=== PATIENT | female | born 1960 | race Caucasian/White ===

== ENCOUNTER 2018-09-01 09:49 | Emergency (ER) | payer BC ==
[2018-09-01] MEDS ORDERED: Albuterol/Ipratropium 3.0-0.5 MG/3 ML Neb Soln NEB ONE (10:12)
--- NOTE | 2018-09-01 10:13 | EDM.PDOC ---
ED HPI GENERAL MEDICAL PROBLEM - General Chief Complaint: Respiratory Problem Stated Complaint: TROUBLE BREATHING Time Seen by Provider: 09/01/18 10:12 Source of Information: Reports: Patient - History of Present Illness INITIAL COMMENTS - FREE TEXT/NARRATIVE: HISTORY AND PHYSICAL: History of present illness: []Patient has persistent cough and week she describes what she calls a rattle in her chest that she can feel this cleared with a DuoNeb however on chest x- ray there is a slight infiltrate on the right will follow radiology interpretation no fever nausea vomiting chills sweats no apparent distress Review of systems: As per history of present illness and below otherwise all systems reviewed and negative. Past medical history: As per history of present illness and as reviewed below otherwise noncontributory. Surgical history: As per history of present illness and as reviewed below otherwise noncontributory. Social history: No reported history of drug or alcohol abuse. Family history: As per history of present illness and as reviewed below otherwise noncontributory. Physical exam: HEENT: Atraumatic, normocephalic, pupils reactive, negative for conjunctival pallor or scleral icterus, mucous membranes moist, throat clear, neck supple, nontender, trachea midline. Lungs: Clear to auscultation, breath sounds equal bilaterally, chest nontender. Post DuoNeb Heart: S1S2, regular, negative for clicks, rubs, or JVD. Abdomen: Soft, nondistended, nontender. Negative for masses or hepatosplenomegaly. Negative for costovertebral tenderness. Pelvis: Stable nontender. Genitourinary: Deferred. Rectal: Deferred. Extremities: Atraumatic, negative for cords or calf pain. Neurovascular unremarkable. Neuro: Awake, alert, oriented. Cranial nerves II through XII unremarkable. Cerebellum unremarkable. Motor and sensory unremarkable throughout. Exam nonfocal. Diagnostics: [Influenza Chest 1 view ] Therapeutics: [DuoNeb ] HFA Z-Derrick Impression: [] light infiltrate on chest x-ray acute bronchitis Definitive disposition and diagnosis as appropriate pending reevaluation and review of above. lungs/chest Pain Score (Numeric/FACES): 4 - Related Data Allergies Allergy/AdvReac Type Severity Reaction Status Date / Time No Known Allergies Allergy Verified 09/01/18 10:14 Home Meds: Home Meds Insulin Glarg,Human.Rec.Analog [Lantus] 50 units SQ BEDTIME 09/01/18 [History] Liraglutide [Saxenda] 30 mg SQ DAILY 09/01/18 [History] Lisinopril 09/01/18 [History] Milnacipran HCl [Savella] 50 mg PO BID 09/01/18 [History] Rosuvastatin [Crestor] 09/01/18 [History] buPROPion [Wellbutrin] PO DAILY 09/01/18 [History] metFORMIN [Glucophage XR] 500 mg PO BID 09/01/18 [History] ED ROS GENERAL - Review of Systems Review Of Systems: See Below ED EXAM, GENERAL - Physical Exam Exam: See Below Course - Vital Signs Last Recorded V/S: Last Vital Signs Temp 96.6 F 09/01/18 10:12 Pulse 93 09/01/18 10:12 Resp 18 09/01/18 10:12 BP 137/85 09/01/18 10:12 Pulse Ox 95 09/01/18 10:12 - Orders/Labs/Meds Orders: Active Orders 24 hr Category Date Time Status RT Aerosol Therapy [RC] ASDIRECTED Care 09/01/18 10:12 Active Chest 2V [CR] Stat Exams 09/01/18 10:51 Taken Meds: Medications Discontinued Medications Generic Name Dose Route Start Last Admin Trade Name Freq PRN Reason Stop Dose Admin Albuterol/Ipratropium 3 ml 09/01/18 10:12 09/01/18 10:26 Duoneb 3.0-0.5 Mg/3 Ml NEB 09/01/18 10:13 3 ml ONETIME ONE Administration Departure - Departure Time of Disposition: 11:27 Disposition: Home, Self-Care 01 Condition: Good Clinical Impression: Pulmonary infiltrate on chest x-ray, Acute bronchitis - Discharge Information Referrals: Leila Wesley DO [Primary Care Provider] - Forms: ED Department Discharge Additional Instructions: The following information is given to patients seen in the emergency department who are being discharged to home. This information is to outline your options for follow-up care. We provide all patients seen in our emergency department with a follow-up referral. The need for follow-up, as well as the timing and circumstances, are variable depending upon the specifics of your emergency department visit. If you don't have a primary care physician on staff, we will provide you with a referral. We always advise you to contact your personal physician following an emergency department visit to inform them of the circumstance of the visit and for follow-up with them and/or the need for any referrals to a consulting specialist. The emergency department will also refer you to a specialist when appropriate. This referral assures that you have the opportunity for follow-up care with a specialist. All of these measure are taken in an effort to provide you with optimal care, which includes your follow-up. Under all circumstances we always encourage you to contact your private physician who remains a resource for coordinating your care. When calling for follow-up care, please make the office aware that this follow-up is from your recent emergency room visit. If for any reason you are refused follow-up, please contact the [facility] emergency department at and asked to speak to the emergency department charge nurse. - My Orders Last 24 Hours: My Active Orders 09/01/18 10:12 RT Aerosol Therapy [RC] ASDIRECTED 09/01/18 10:51 Chest 2V [CR] Stat - Assessment/Plan Last 24 Hours: My Active Orders 09/01/18 10:12 RT Aerosol Therapy [RC] ASDIRECTED 09/01/18 10:51 Chest 2V [CR] Stat
--- NOTE | 2018-09-01 11:57 | CR ---
EXAMINATION: Two-view chest (PA and Lateral views). HISTORY: Shortness of breath. FINDINGS: The trachea is midline. The cardiomediastinal silhouette is within normal limits. There is a trace right suprahilar infiltrate. No pleural effusion or pneumothorax. Right shoulder hardware is noted. IMPRESSION: 1. Trace right suprahilar infiltrate. Likely developing pneumonia.
== END 2018-09-01 11:36 | disposition home or self-care (01) ==
LOC: MW.ED 09:49
DX: J20.9 Acute bronchitis, unspecified (principal); R91.8 Other nonspecific abnormal finding of lung field; I10 Essential (primary) hypertension; E11.9 Type 2 diabetes mellitus without complications; Z90.49 Acquired absence of other specified parts of digestive tract; Z79.4 Long term (current) use of insulin; Z79.899 Other long term (current) drug therapy
CPT/HCPCS: 71046; 71046-26; 87804; 94640; 99283; 99284-25; J7620-GY

== ENCOUNTER 2020-06-13 09:03 | Emergency (ER) | payer BC ==
[2020-06-13] MEDS ORDERED: Sodium Chloride 0.9% 2.5 ML Syringe FLUSH PRN (09:23)
[2020-06-13] MEDS ORDERED: Sodium Chloride 0.9% 10 ML Syringe FLUSH PRN (09:23)
--- NOTE | 2020-06-13 09:26 | EDM.PDOC ---
ED HPI GENERAL MEDICAL PROBLEM - General Chief Complaint: Respiratory Problem Stated Complaint: OXYGEN IS DROPPING Time Seen by Provider: 06/13/20 09:06 Source of Information: Reports: Patient, Old Records History Limitations: Reports: No Limitations - History of Present Illness INITIAL COMMENTS - FREE TEXT/NARRATIVE: This is a very pleasant 59-year-old female with a past medical history of diabetes mellitus, hyperlipidemia, hypertension, fibromyalgia presenting with infectious symptoms. She reports a 4-day history of myalgias, fatigue, gradually worsening shortness of breath, and fever at home. T-max 102.0 about 2 days ago. Her breathing worsened, prompting her to come to the emergency department this morning. She also reports 2 days of substernal chest discomfort, constant since the onset. Describes "tightness", nonradiating, nothing makes it better or worse. Denies any nausea, vomiting, does report some nonbloody diarrhea over the past few days. No diaphoresis, rash, neck stiffness, dysuria, hematuria, urinary frequency. ROS: A 10-point review of systems was negative, except as noted in the HPI (or in the ROS section of this note). Past medical history: Reviewed, no additional pertinent history. Surgical history: Reviewed in system, no additional pertinent history. Social history: Reviewed in system, no additional pertinent history. Family history: Reviewed in system, no additional pertinent history. PHYSICAL EXAM Vital signs reviewed. Nursing notes reviewed. Constitutional: Awake, alert, non-distressed. Head: Normocephalic, atraumatic. Eyes: EOMI, conjunctiva normal, no discharge, no scleral icterus. Ears, Nose, Throat: External ears and nose normal, moist oral mucosa. Cardiovascular: 2+ radial pulses bilaterally, capillary refill less than 2 seconds. Pulmonary: Tachypneic, slightly increased normal work of breathing, no accessory muscle use. Abdomen/GI: Soft, nontender, nondistended, no guarding or rigidity, no masses. Musculoskeletal: No deformities. Integumentary: Appropriate color for ethnicity, warm, dry, no pallor or jaundice, no rash. Neurologic: Alert, answering questions appropriately, normal speech, no facial droop, moving all extremities well. Psychiatric: Appropriate mood and affect, normal thought process. This patient was seen and evaluated during the 2019 SARS-CoV-2 novel coronavirus pandemic period. Community viral transmission is ongoing at time of this encounter and the emergency department is operating under pandemic response procedures. chest Pain Score (Numeric/FACES): 3 - Related Data Allergies Allergy/AdvReac Type Severity Reaction Status Date / Time No Known Allergies Allergy Verified 06/13/20 09:18 Home Meds: Home Meds Insulin Glarg,Human.Rec.Analog [Lantus] 50 units SQ BEDTIME 09/01/18 [History] Liraglutide [Saxenda] 30 mg SQ DAILY 09/01/18 [History] Lisinopril 09/01/18 [History] Milnacipran HCl [Savella] 50 mg PO BID 09/01/18 [History] Rosuvastatin [Crestor] 09/01/18 [History] buPROPion [Wellbutrin] PO DAILY 09/01/18 [History] metFORMIN [Glucophage XR] 500 mg PO BID 09/01/18 [History] Past Medical History Cardiovascular History: Reports: High Cholesterol, Hypertension Respiratory History: Reports: Other (See Below) Other Respiratory History: Pneumoscystic Pneumonitis Musculoskeletal History: Reports: Fibromyalgia Endocrine/Metabolic History: Reports: Diabetes, Type II - Infectious Disease History Infectious Disease History: Reports: Chicken Pox - Past Surgical History GI Surgical History: Reports: Cholecystectomy Social & Family History - Caffeine Use Caffeine Use: Reports: None ED ROS GENERAL - Review of Systems Review Of Systems: See Below ED EXAM, GENERAL - Physical Exam Exam: See Below #1 Interpretation EKG Interpretation Comments: 12-Lead ECG Interpretation Acquired: 9:18 AM Rhythm: Sinus rhythm Rate: 89 bpm [place]: Normal Intervals: Normal Ectopy: None RV Strain: No obvious RV strain pattern. ST Segments/T-Waves: T wave inversions in lead III, very minimal ST segment deviation in V4 through 6 Interpretation: No STEMI Course - Vital Signs Text/Narrative:: 59-year-old female presenting with several days of fever, myalgias, shortness of breath, and chest pain. Differential diagnosis includes but is not limited to: COVID-19 infection, influenza, pneumonia, sepsis, bacteremia, anemia, arrhythmia, acute viral syndrome, and many others. 10:11 AM: Noted to be hypoxic in triage, placed on nasal cannula oxygen. Ordered blood cultures, labs, chest x-rays, COVID-19 and influenza tests. 11:23 AM: CBC shows leukopenia, normal hemoglobin and platelet count. INR 0.87. D-dimer is 0.54. Metabolic panel shows glucose 163, otherwise normal readings and renal function. Troponin is negative. Covid PCR is positive, influenza testing is negative. Chest x-ray shows patchy areas of alveolar consolidation in the right lower lobe in the left midlung zone along with a 3.3 x 2.7 cm soft tissue density over the right lung apex. Radiologist recommended a CT study of the chest to evaluate for possible malignancy. 1246: CT pulmonary angiogram shows no evidence of pulmonary embolism, moderate multifocal groundglass opacities bilaterally. No evidence of neoplasm as questioned on the x-ray. LAP-BAND noted. The patient noted that her pulse oximetry readings in triage were in the 70s, however, on the hospital monitoring equipment she has been above 90%. We did ambulate the patient around the emergency department and her oxygen readings did not drop below 94 to 95%. There is no evidence of malignancy on her CT scan. Patient is mildly hypoxic but does not meet criteria for inpatient admission given that her oxygen saturations are above 90%. On reevaluation, she is no longer tachypneic and is breathing comfortably on room air. She has no significant laboratory derangements and shows no evidence of respiratory compromise. She has had chest pain for several days but has a negative troponin and nonischemic EKG. I have low suspicion for acute coronary syndrome at this point. I feel that her symptoms are consistent with COVID-19 infection and pneumonia. I have a low suspicion for bacterial pneumonia at this point. The patient does not meet criteria for sepsis. Her twelve-lead EKG looks nonischemic. I feel that she can safely discharge home with plans to follow-up with her primary care physician. She will monitor her oxygen saturations at home and I suggested obtaining a different home pulse oximetry monitor. We will have her follow-up with her primary medical clinic in the next 3 to 5 days for reevaluation. Discussed strict return precautions including worsening shortness of breath, chest pain, or any other new or concerning symptoms. Plan: Patient is stable to discharge home with outpatient primary care clinic follow-up. Strict emergency department return precautions were provided, patient indicated understanding. All questions were answered prior to departure. Discharged in good condition. Last Recorded V/S: Last Vital Signs Temp 36.1 C 06/13/20 09:12 Pulse 99 06/13/20 09:12 Resp 22 H 06/13/20 09:12 BP 176/107 H 06/13/20 09:12 Pulse Ox 94 L 06/13/20 09:12 - Orders/Labs/Meds Orders: Active Orders 24 hr Category Date Time Status Cardiac Monitoring [RC] CONTINUOUS Care 06/13/20 09:24 Active EKG Documentation Completion [RC] STAT Care 06/13/20 09:23 Active CULTURE BLOOD [BC] Stat Lab 06/13/20 09:58 Received CULTURE BLOOD [BC] Stat Lab 06/13/20 10:06 Received Sodium Chloride 0.9% [Saline Flush] Med 06/13/20 09:23 Active 10 ml FLUSH ASDIRECTED PRN Sodium Chloride 0.9% [Saline Flush] Med 06/13/20 09:23 Active 2.5 ml FLUSH ASDIRECTED PRN Blood Culture x2 Reflex Set [OM.PC] Stat Oth 06/13/20 09:23 Ordered Saline Lock Insert [OM.PC] Stat Oth 06/13/20 09:23 Ordered Medication Orders Sodium Chloride (Saline Flush) 10 ml FLUSH ASDIRECTED PRN PRN Reason: Keep Vein Open Last Admin: 06/13/20 10:05 Dose: 10 ml Documented by: TRISTON Sodium Chloride (Saline Flush) 2.5 ml FLUSH ASDIRECTED PRN PRN Reason: Keep Vein Open Last Admin: 06/13/20 10:05 Dose: 2.5 ml Documented by: TRISTON Labs: Laboratory Tests 06/13/20 06/13/20 06/13/20 Range/Units 09:32 09:32 09:32 WBC 3.33 L (4.0-11.0) K/uL RBC 5.15 (4.30-5.90) M/uL Hgb 13.4 (12.0-16.0) g/dL Hct 42.4 (36.0-46.0) % MCV 82.3 (80.0-98.0) fL MCH 26.0 L (27.0-32.0) pg MCHC 31.6 (31.0-37.0) g/dL RDW Std Deviation 42.3 (28.0-62.0) fl RDW Coeff of [place] 14 (11.0-15.0) % Plt Count 171 (150-400) K/uL MPV 10.10 (7.40-12.00) fL Neut % (Auto) 65.5 (48.0-80.0) % Lymph % (Auto) 24.0 (16.0-40.0) % [place] % (Auto) 9.0 (0.0-15.0) % Eos % (Auto) 1.5 (0.0-7.0) % Baso % (Auto) 0.0 (0.0-1.5) % Neut # (Auto) 2.2 (1.4-5.7) K/uL Lymph # (Auto) 0.8 (0.6-2.4) K/uL [place] # (Auto) 0.3 (0.0-0.8) K/uL Eos # (Auto) 0.1 (0.0-0.7) K/uL Baso # (Auto) 0.0 (0.0-0.1) K/uL Nucleated RBC % 0.0 /100WBC Nucleated RBCs # 0 K/uL INR 0.87 D-Dimer, Quantitative (0.0-0.50) mg/L FEU Lactate 1.3 (0.20-2.00) mmol/L Sodium (136-145) mmol/L Potassium (3.5-5.1) mmol/L Chloride (98-107) mmol/L Carbon Dioxide (21.0-32.0) mmol/L BUN (7.0-18.0) mg/dL Creatinine (0.6-1.0) mg/dL Est Cr Clr Drug Dosing mL/min Estimated GFR (MDRD) ml/min Glucose (74-106) mg/dL Calcium (8.5-10.1) mg/dL Total Bilirubin (0.2-1.0) mg/dL AST (15-37) IU/L ALT (14-63) IU/L Alkaline Phosphatase (46-116) U/L Troponin I (0.000-0.056) ng/mL Total Protein (6.4-8.2) g/dL Albumin (3.4-5.0) g/dL Globulin (2.6-4.0) g/dL Albumin/Globulin Ratio (0.9-1.6) SARS-CoV-2 RNA (MARIA DEL ROSARIO) (NEGATIVE) 06/13/20 06/13/20 06/13/20 Range/Units 09:32 09:32 10:05 WBC (4.0-11.0) K/uL RBC (4.30-5.90) M/uL Hgb (12.0-16.0) g/dL Hct (36.0-46.0) % MCV (80.0-98.0) fL MCH (27.0-32.0) pg MCHC (31.0-37.0) g/dL RDW Std Deviation (28.0-62.0) fl RDW Coeff of Patricia (11.0-15.0) % Plt Count (150-400) K/uL MPV (7.40-12.00) fL Neut % (Auto) (48.0-80.0) % Lymph % (Auto) (16.0-40.0) % [place] % (Auto) (0.0-15.0) % Eos % (Auto) (0.0-7.0) % Baso % (Auto) (0.0-1.5) % Neut # (Auto) (1.4-5.7) K/uL Lymph # (Auto) (0.6-2.4) K/uL [place] # (Auto) (0.0-0.8) K/uL Eos # (Auto) (0.0-0.7) K/uL Baso # (Auto) (0.0-0.1) K/uL Nucleated RBC % /100WBC Nucleated RBCs # K/uL INR D-Dimer, Quantitative 0.54 H (0.0-0.50) mg/L FEU Lactate (0.20-2.00) mmol/L Sodium 136 (136-145) mmol/L Potassium 4.1 (3.5-5.1) mmol/L Chloride 102 (98-107) mmol/L Carbon Dioxide 24.0 (21.0-32.0) mmol/L BUN 13 (7.0-18.0) mg/dL Creatinine 0.8 (0.6-1.0) mg/dL Est Cr Clr Drug Dosing 77.18 mL/min Estimated GFR (MDRD) > 60.0 ml/min Glucose 163 H (74-106) mg/dL Calcium 8.9 (8.5-10.1) mg/dL Total Bilirubin 0.5 (0.2-1.0) mg/dL AST 31 (15-37) IU/L ALT 35 (14-63) IU/L Alkaline Phosphatase 72 (46-116) U/L Troponin I < 0.050 (0.000-0.056) ng/mL Total Protein 6.9 (6.4-8.2) g/dL Albumin 3.2 L (3.4-5.0) g/dL Globulin 3.7 (2.6-4.0) g/dL Albumin/Globulin Ratio 0.9 (0.9-1.6) SARS-CoV-2 RNA (MARIA [place] ROSARIO) POSITIVE H (NEGATIVE) Meds: Medications Generic Name Dose Route Start Last Admin Trade Name Freq PRN Reason Stop Dose Admin Sodium Chloride 10 ml 06/13/20 09:23 06/13/20 10:05 Saline Flush FLUSH 10 ml ASDIRECTED PRN Administration Keep Vein Open Sodium Chloride 2.5 ml 06/13/20 09:23 06/13/20 10:05 Saline Flush FLUSH 2.5 ml ASDIRECTED PRN Administration Keep Vein Open Departure - Departure Time of Disposition: 12:49 Disposition: Home, Self-Care 01 Condition: Good Clinical Impression: COVID-19 virus infection, Atypical chest pain - Discharge Information *PRESCRIPTION DRUG MONITORING PROGRAM REVIEWED*: Not Applicable *COPY OF PRESCRIPTION DRUG MONITORING REPORT IN PATIENT CONY: Not Applicable Instructions: COVID-19 Frequently Asked Questions, COVID-19, Prevent the Spread of COVID-19 if You Are Sick - [facility] Referrals: Leila Wesley DO [Primary Care Provider] - 3 Days (For follow-up of symptoms and chest pain.) Forms: ED Department Discharge Additional Instructions: Your COVID-19 test was positive. You need to stay home from work or school and isolate from others as much as possible. You need to wear a mask or face covering and you should cover your cough or sneeze. Wash your hands frequently. Try to isolate yourself from family members or others as much as you can. You may develop new symptoms such as a headache, sore throat, cough, sneezing, nasal congestion or drainage, chest congestion, nausea, vomiting, diarrhea, body aches, or chills. These are not unusual. Recommendations from the Centers for Disease Control (CDC) are that you should isolate at home for at least 10 days from the start of your symptoms. When your symptoms are improving for a period of 24 hours and you have no fever (without the use of fever reducing medications like acetaminophen or ibuprofen), you may discontinue isolation and go back to work/school. If you are still feeling unwell at the end of the 10-day period, you should continue to isolate until you have been feeling better for 24 hours. Anyone that lives with you or anyone that has been in close contact (within 6 feet for 15 total minutes) recently (3-4 days before your symptoms started) needs to be tested for COVID. You can take any standard [id number] medications for cold or flu type symptoms including fever reducing medications (acetaminophen or ibuprofen), cough medications (Robitussin, cough drops or lozenges), or medications like TheraFlu or DayQuil/NyQuil. Be sure you are drinking plenty of fluids. If you are still feeling sick beyond 10-14 days after the onset of your symptoms I would recommend contacting your primary medical doctor's office for further guidance. Warning signs to come back to the emergency department include worsening shortness of breath, worsening chest pain, lightheadedness, loss of consciousness, if you are unable to swallow or handle drinking fluids, or if you have any other new and concerning symptoms. Thank you for choosing the [facility] emergency department in [place] for your medical needs today. It was a pleasure caring for you. The following information is given to patients seen in the emergency department who are being discharged. This information is to outline your options for follow-up care. We provide all patients seen in our emergency department with a follow-up referral. The need for follow-up, as well as the timing and circumstances, are variable depending upon the specifics of your emergency department visit. If you don't have a primary care physician on staff, we will provide you with a referral. We always advise you to contact your personal physician following an emergency department visit to inform them of the circumstance of the visit and for follow-up with them and/or the need for any referrals to a consulting specialist. The emergency department will also refer you to a specialist when appropriate. This referral assures that you have the opportunity for follow-up care with a specialist. All of these measure are taken in an effort to provide you with optimal care, which includes your follow-up. Under all circumstances we always encourage you to contact your private physician who remains a resource for coordinating your care. When calling for follow-up care, please make the office aware that this follow-up is from your recent emergency room visit. If for any reason you are refused follow-up, please contact the [facility] Emergency Department at and asked to speak to the emergency department charge nurse. If you do not have a primary care physician that is caring for you, you can contact these clinics below to set up an appointment to establish care: [facility] - Primary Care [address] [place] [address] [id number] [address] [id number] Sepsis Event Note (ED) - Evaluation Sepsis Screening Result: Possible Sepsis Risk - Focused Exam Vital Signs: Vital Signs Temp Pulse Resp BP Pulse Ox 06/13/20 09:12 36.1 C 99 22 H 176/107 H 94 L - My Orders Last 24 Hours: My Active Orders 06/13/20 09:23 EKG Documentation Completion [RC] STAT Sodium Chloride 0.9% [Saline Flush] 10 ml FLUSH ASDIRECTED PRN Sodium Chloride 0.9% [Saline Flush] 2.5 ml FLUSH ASDIRECTED PRN Blood Culture x2 Reflex Set [OM.PC] Stat Saline Lock Insert [OM.PC] Stat 06/13/20 09:24 Cardiac Monitoring [RC] CONTINUOUS 06/13/20 09:58 CULTURE BLOOD [BC] Stat 06/13/20 10:06 CULTURE BLOOD [BC] Stat - Assessment/Plan Last 24 Hours: My Active Orders 06/13/20 09:23 EKG Documentation Completion [RC] STAT Sodium Chloride 0.9% [Saline Flush] 10 ml FLUSH ASDIRECTED PRN Sodium Chloride 0.9% [Saline Flush] 2.5 ml FLUSH ASDIRECTED PRN Blood Culture x2 Reflex Set [OM.PC] Stat Saline Lock Insert [OM.PC] Stat 06/13/20 09:24 Cardiac Monitoring [RC] CONTINUOUS 06/13/20 09:58 CULTURE BLOOD [BC] Stat 06/13/20 10:06 CULTURE BLOOD [BC] Stat
[2020-06-13 10:09] LABS: BLOOD UREA NITROGEN,BUN 13 mg/dL (7.0-18.0); CHLORIDE,CL 102 mmol/L (98-107); GLUCOSE RANDOM 163 mg/dL (74-106); POTASSIUM,K 4.1 mmol/L (3.5-5.1); SODIUM,NA 136 mmol/L (136-145)
--- NOTE | 2020-06-13 11:07 | CR ---
INDICATION: Dyspnea; possible COVID-19 infection. COMPARISON: Two-view chest September 01, 2018. TECHNIQUE: Portable AP chest. FINDINGS: Normal size cardiac silhouette. Patchy areas of alveolar consolidation left mid lung zone and right lower lobe; highly suggestive of COVID-19 infection. increased soft tissue density overlying the right upper lobe; cannot tell if this represents a patchy area of alveolar consolidation or a mass lesion measuring 3.3 x 2.7 cm; suggest obtaining a chest CT for further assessment. Shoulder arthroplasty on the right. IMPRESSION: 1. Patchy areas of alveolar consolidation right lower lobe and left mid lung zone; suggestive of COVID-19 infection. 2. 3.3 x 2.7 cm soft tissue density overlying the right lung apex; could be infiltrate; mass lesion is not ruled out ; CT chest suggested for further assessment. Dictated by Ceci Graf MD @ Jun 13 2020 11:01AM Signed by Dr. Ceci Graf @ Jun 13 2020 11:05AM
--- NOTE | 2020-06-13 12:36 | CT ---
INDICATION: Abnormal chest x-ray. Possible COVID-19. COMPARISON: A chest radiograph from earlier this same day TECHNIQUE: : CT examination of the chest was performed with the uneventful intravenous administration of 75 cc of Isovue 370 while thin axial sections were obtained from above the apices of the lungs to the lung bases. Please note that all CT scans at this facility use dose modulation, iterative reconstruction, and/or weight-based dosing when appropriate to reduce radiation dose to as low as reasonably achievable. FINDINGS: : HEART and MEDIASTINUM: Heart size top normal. Prominent mediastinal lymph nodes likely reactive. No significant pericardial fluid PULMONARY ARTERIAL CIRCULATION: There is no visible intraluminal filling defect to suggest pulmonary embolus. LUNGS: Moderate multifocal ground-glass opacities bilaterally. The findings are consistent with COVID related lung disease. Other etiologies are possible. None of these opacities are likely to be neoplastic as questioned on the plain film. PLEURAL SPACES: There is no pleural effusion, pneumothorax or pleural based mass. VISUALIZED UPPER ABDOMEN: There is a lap band and hepatic steatosis OSSEOUS STRUCTURES: Age-appropriate appearance. No acute fracture or destructive process. TUBES and LINES: None. IMPRESSION: 1. There is no finding of pulmonary embolus. 2. Moderate bilateral multifocal ground-glass opacification bilaterally consistent with COVID related lung disease. Other etiologies are possible but felt less likely. There is no finding suspicious for malignancy. 3. Top-normal size heart. Prominent mediastinal lymph nodes likely reactive. 4. Hepatic steatosis. Lap band. Please note that all CT scans at this facility use dose modulation, iterative reconstruction, and/or weight-based dosing when appropriate to reduce radiation dose to as low as reasonably achievable. Dictated by Mesfin Gagnon MD @ Jun 13 2020 12:27PM Signed by Dr. Mesfin Gagnon @ Jun 13 2020 12:34PM
[2020-06-13] MEDS ORDERED: Iopamidol 755 MG/ML 500 ML Multipack Bottle IVPUSH STA (18:36)
== END 2020-06-13 13:30 | disposition home or self-care (01) ==
LOC: MW.ED 09:03
DX: U07.1 COVID-19 (principal); E11.9 Type 2 diabetes mellitus without complications; E78.5 Hyperlipidemia, unspecified; I10 Essential (primary) hypertension; Z79.4 Long term (current) use of insulin; Z79.899 Other long term (current) drug therapy
CPT/HCPCS: 36415; 71045; 71275; 80053; 83605; 84484; 85025; 85379; 85610; 87040; 87635; 87804; 93005; 99285; Q9967; 93010; U0002